=== PATIENT | female | born 1965 | race African-American/Black ===

== ENCOUNTER 2016-06-30 11:38 | Day surgery (SDC) | payer OTHER ==
[~2016-06-30] VITALS: Ht 162.6 cm; Wt 77.6 kg
[2016-06-30] MEDS ORDERED: VITAMIN D31000 IU PO (12:20)
[2016-06-30] MEDS ORDERED: MAXALT10 MG PO (12:20)
[2016-06-30] MEDS ORDERED: AMITRIPTYLINE H10 M1 PO (12:22)
[2016-06-30] MEDS ORDERED: BENADRYL25 M2 PO (12:23)
[2016-06-30 12:29] VITALS: BP 123/71; PULSE 67; TEMP 97.7
[2016-06-30 13:20] VITALS: BP 133/63; PULSE 88; TEMP 97.6
[2016-06-30 13:35] VITALS: BP 128/70; PULSE 83
== END 2016-06-30 14:30 | disposition home or self-care (01) ==
LOC: SDCO 11:38
DX: R06.02 Shortness of breath (principal); R91.8 Other nonspecific abnormal finding of lung field; Z20.1 Contact with and (suspected) exposure to tuberculosis; Z80.1 Family history of malignant neoplasm of trachea, bronchus and lung
CPT/HCPCS: J2704

== ENCOUNTER 2018-01-04 12:21 | Day surgery (SDC) | payer OTHER ==
[2018-01-04] VITALS (8 sets, daily range): BP systolic 105–123; BP diastolic 62–69; PULSE 53–72; TEMP 97.1–97.8
[~2018-01-04] VITALS: Ht 160 cm; Wt 72.2 kg
[~2018-01-04 12:21] MED LIST: AMITRIPTYLINE H10 M1 PO; BENADRYL25 M2 PO; MAXALT10 MG PO; VITAMIN D31000 IU PO
[2018-01-04] MEDS ORDERED: PREMPRO 0.45 MG1 TAB PO (12:43)
== END 2018-01-04 16:45 | disposition home or self-care (01) ==
LOC: SDCO 12:21
DX: Z12.11 Encounter for screening for malignant neoplasm of colon (principal); K64.0 First degree hemorrhoids; Z80.0 Family history of malignant neoplasm of digestive organs; Z90.49 Acquired absence of other specified parts of digestive tract
CPT/HCPCS: J2250; J3010; J7030

== ENCOUNTER 2020-08-06 05:28 | Day surgery (SDC) | payer OTHER ==
[~2020-08-06] VITALS: Ht 160 cm; Wt 72.2 kg
[~2020-08-06 05:28] MED LIST changes: +PREMPRO 0.45 MG1 TAB PO
[2020-08-06 06:04] VITALS: BP 107/60; PULSE 70; TEMP 97.5
[2020-08-06] MEDS ORDERED: VITAMIN C500 MG PO (06:13)
[2020-08-06] MEDS ORDERED: CALCIUM CITRAT950 MG PO (06:14)
[2020-08-06] MEDS ORDERED: NORCO 325 MG-7.1 TAB PO (06:16)
[2020-08-06] MEDS ORDERED: ULTRAM 50MG TAB50 MG PO (06:16)
--- NOTE | 2020-08-06 06:18 | NUR ---
TO RM AT 0538- CALL LIGHT IN REACH WILL CALL FOR RIDE HOME
[2020-08-06 07:07] VITALS: BP 109/67; PULSE 57; TEMP 97.3
--- NOTE | 2020-08-06 07:07 | NUR ---
TO RM 8 PER OWN WILL STEADY GAIT. DROWSY, BUT ANSWERS QUESTIONS COHERENTLY. L HAND DRESSING CLEAN DRY INTACT. ELEVATED AND ICED ORDERED. DENIES PAIN OR DISCOMFORT AT THIS TIME. DENIES NAUSEA OR VOMITING.
[2020-08-06 07:20] VITALS: BP 104/70; PULSE 65
--- NOTE | 2020-08-06 07:20 | NUR ---
AWAKE AND CALLED TO USE BATHROOM. AMBULATED TO BATHROOM AND AMBULATED BACK. VOIDED AND TOLERATED WELL. RECEIVED MUFFIN AND WATER. SITTING UP AND TALKING WITH STAFF. TEXTING ON PHONE.
[2020-08-06 07:30] VITALS: BP 116/72; PULSE 64
--- NOTE | 2020-08-06 07:30 | NUR ---
ATE 100% AND TOLERATED WELL. PATIENT STATED SHE TEXTED HER TO BE PICKED UP AT 0800.
--- NOTE | 2020-08-06 07:45 | NUR ---
RECEIVED DISCHARGE INSTRUCTIONS AND VERBALIZED UNDERSTANDING. DISCONTINUED IV AND INT- CATHETER INACT. PATIENT GETTING DRESSED.
--- NOTE | 2020-08-06 08:23 | NUR ---
DISCHARGED PER WC BY NURSING STAFF TO PRIVATE CAR IN CARE OF .
== END 2020-08-06 08:24 | disposition home or self-care (01) ==
LOC: SDCO 05:28
DX: M65.312 Trigger thumb, left thumb (principal); Z20.822 Contact with and (suspected) exposure to COVID-19; Z86.15 Personal history of latent tuberculosis infection
CPT/HCPCS: J0690; J2704; J7120